=== PATIENT | male | born 1935 | race Caucasian/White ===

== ENCOUNTER 2016-10-11 14:52 | Emergency (ER) | payer OTHER ==
[2016-10-11 15:06] VITALS: RESP 18; TEMP 98.1
--- NOTE | 2016-10-11 15:19 | EDPHY ---
H & P Stated Complaint: Lost balance,fell on Tues;hit head,landed on R hip;no LOC Time Seen by Provider: 10/11/16 15:18 - Personal History Current Tetanus Diphtheria and Acellular Pertussis (TDAP): Yes - Medical/Surgical History Other PMH: brain bleed in Apr 2016 from fall. cataract surg - Social History Smoking Status: Former smoker Constitutional: Initial Vital Signs Temperature (C) 36.7 C 10/11/16 14:55 Heart Rate 69 10/11/16 14:55 Respiratory Rate 18 10/11/16 14:55 Blood Pressure 158/72 H 10/11/16 14:55 O2 Sat (%) 95 10/11/16 14:55 O2 Delivery Mode Room Air Allergies/Adverse Reactions: No Known Allergies Allergy (Unverified 10/11/16 15:06) Home Medications: Medication Instructions Recorded B P Meds 10/11/16 Medical Decision Making - Diagnostics Imaging: Imaging Impressions Head CT 10/11/16 15:32 Impression: 1. Remote postoperative changes of the right calvarium with some minimal dural thickening, but no acute intra or extra-axial hemorrhage. 2. Moderately advanced senescent features. 3. 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 Trabecular rarefaction is also associated with the right and left maxillary alveolar ridge. If there is further clinical concern regarding the patient's symptoms, MR imaging is suggested, if not otherwise contraindicated. Findings were conveyed to Lm the medical insurance biller working with Sanket Rogers MD at 16:05, on 10/11/2016. ED Course/Re-evaluation: CHIEF COMPLAINT: Traumatic left hip pain, headache HISTORY OF PRESENT ILLNESS: The patient is an 81 y/o male, with a history of a subdural hematoma, complaining of left hip pain and a headache secondary to a fall 2 days ago. He was walking alone shortly after cataract surgery and began to lose his balance. He fell and struck his forehead on a metal bedpost and his left hip on a wall. He denies any loss of consciousness, weakness, paresthesias , abdominal pain, chest pain, midline neck or back pain, or difficulty ambulating. He reports his pain has actually decreased, but due to previous history of a subdural after a fall he is concerned about another head injury. He denies anticoagulant use or recent aspirin use. He notes a follow up head CT 2 weeks ago still showed some changes from his head bleed in April 2016. REVIEW OF SYSTEMS: A 10 point review of systems was performed and is negative with the exception of the elements mentioned in the history of present illness. PHYSICAL EXAM: HR, BP, O2 Sat, RR. Temp noted General Appearance: Alert, well hydrated, appropriate, and non-toxic appearing. Head: Atraumatic without scalp tenderness or obvious injury Eyes: Pupils equal, round, reactive to light and accommodation, EOMI, no trauma , no injection. Ears: Clear bilaterally, no perforation, normal landmarks Nose: Atraumatic, no rhinorrhea, clear. Neck: Supple, nontender, no lymphadenopathy. Respiratory: No retractions, no distress, no wheezes, and no accessory muscle use. Lungs are clear to auscultation bilaterally. Cardiovascular: Regular rate and rhythm, no murmurs, rubs, or gallops. Good capillary refill all extremities. Gastrointestinal: Abdomen is soft, nontender, non-distended, no masses, no rebound, no guarding, no peritoneal signs. Musculoskeletal: Normal active ROM of all extremities, atraumatic. Neurological: Alert, appropriate, and interactive. The patient has normal DTRs and non-focal cranial nerves, motor, sensory, and cerebellar exam. Normal straight leg raise. Skin: No rashes, good turgor, no nodules on palpation. Past medical history: Subdural hematoma secondary to fall April 2016 Past surgical history: Skin graft right lower leg; cataract surgery 10/09/16 Family history: noncontributory Social history: [facility]PROCED[facility]CRITICAL CARE TIME: I viewed the images myself on the PACS system. DIFFERENTIAL DIAGNOSIS: The differential diagnosis for the patient's head injury included but was not limited to concussion, skull fracture, intra- parenchymal contusion, subarachnoid, subdural and epidural hematoma. MEDICAL DECISION MAKING: This is an 81 y/o male presenting for evaluation of head trauma secondary to a recent fall. He has a history of a recent subdural hematoma and is here with concern for a similar injury. His exam is unremarkable; he is neurologically intact and has full ROM of his left hip. He is higher risk for head bleed due to his age and recent subdural. Plan for head CT to rule out acute intracranial process. Patient declines pain medication. 1610: Head CT shows nothing acute per Dr. River, radiology. I discussed these results with the patient. He will be discharged with standard head injury care instructions and recommendation to follow up with his PCP as needed. Return precautions given. He is comfortable with this plan. Departure - Departure Disposition: Home, Routine, Self-Care Clinical Impression: Left hip pain Headache Qualifiers: Headache type: post-traumatic Headache chronicity pattern: acute headache Intractability: not intractable Qualified Code(s): G44.319 - Acute post- traumatic headache, not intractable Head injury Qualifiers: Encounter type: initial encounter Qualified Code(s): S09.90XA - Unspecified injury of head, initial encounter Condition: Good Instructions: Contusion in Adults (ED), General Headache (ED), Head Injury (ED) Additional Instructions: 1. Follow up with your primary care provider for unimproved symptoms over the next 2-3 days. 2. Return to the ED for severe pain, weakness, numbness, difficulty walking, vision changes, or other worsening of condition. Referrals: Julien Leone MD [Primary Care Provider] - As per Instructions Report Scribed for: Sanket Rogers Report Scribed by: Nelly Dobbins Date of Report: 10/11/16 Time of Report: 15:37
[2016-10-11 16:33] VITALS: BP 144/76; PULSE 76; O2SAT 97
== END 2016-10-11 16:33 | disposition home or self-care (01) ==
DX: S79.912A Unspecified injury of left hip, initial encounter (principal); G44.319 Acute post-traumatic headache, not intractable; Z87.891 Personal history of nicotine dependence; W18.09XA Striking against other object with subsequent fall, initial encounter; Y99.8 Other external cause status; Y93.01 Activity, walking, marching and hiking

== ENCOUNTER → 2018-05-13 | Outpatient (CLI) | payer OTHER ==
[~2018-05-13] MED LIST: IOPAMIDOL (ISOVUE-300) 100 ML BTL ONE
== END ==
LOC: FIMAGING 13:28
PROVIDERS: ATTEND Physician Assistant Medical
DX: N32.9 Bladder disorder, unspecified (principal); K86.2 Cyst of pancreas; E27.9 Disorder of adrenal gland, unspecified; N40.0 Benign prostatic hyperplasia without lower urinary tract symptoms; K40.90 Unilateral inguinal hernia, without obstruction or gangrene, not specified as recurrent; K80.20 Calculus of gallbladder without cholecystitis without obstruction; K57.30 Diverticulosis of large intestine without perforation or abscess without bleeding
CPT/HCPCS: 74178; Q9967